=== PATIENT | male | born 1940 | race Caucasian/White ===

== ENCOUNTER 2018-08-30 09:05 | Inpatient (IN) ==
[2018-09-30 13:31] LABS: Appearance,Urine CLEAR; Bilirubin,Urine NEG (NEG); Color,Urine YELLOW; Glucose,Urine (UA) NEGATIVE (NEG); Leukocyte Esterase,Urine NEG /uL (NEG); Protein,Urine NEG (NEG); Specific Gravity,Urine 1.009 (1.000-1.035); Urine Blood NEG mg/dL (<0.03); Urobilinogen,Urine NEG (NEG)
[2018-09-30 13:52] LABS: Basophils # (Auto) 0 K/mcL (0.0-0.3); Basophils % (Auto) 0.5 % (0.0-2.0); Eosinophils # (Auto) 0.2 K/mcL (0.0-0.7); Eosinophils % (Auto) 3.6 % (0.0-7.0); Granulocytes % (Auto) 68.7 % (38.0-78.0); Lymphocytes # (Auto) 1.1 K/mcL (1.5-4.8); Lymphocytes % (Auto) 17.8 % (15.5-49.0); Mean Cell Volume 87.3 fL (80.0-100.0); Mean Corpuscular HGB Conc 33.2 g/dL (31.0-36.0); Monocytes # (Auto) 0.6 K/mcL (0.1-0.9); Monocytes % (Auto) 9.4 % (1.0-12.0); Platelet Count 290 K/mcL (140-440); RBC 5.34 M/mcL (4.50-5.90); Red Cell Distribution Width 14.9 % (11.5-14.5)
[2018-09-30 14:00] LABS: Blood Urea Nitrogen 16 mg/dl (8-23)
[2018-10-04] MEDS ORDERED: CELECOXIB 200 MG CAPSULE PO SCH (07:00)
[2018-10-04] MEDS ORDERED: ACETAMINOPHEN 500 MG TABLET PO SCH (07:00)
[2018-10-04] MEDS ORDERED: ceFAZolin 2 GM in DEXTROSE 5% IN WATER 50 ML IV SCH (07:00)
[2018-10-04] MEDS ORDERED: 0.9 % SODIUM CHLORIDE 9 ML, KETOROLAC 30 MG, ROPIVACAINE HCL/PF 49.5 ML, EPINEPHrine 0.... IJ SCH (07:00)
[2018-10-04] MEDS ORDERED: oxyCODONE 10 MG TAB.ER.12H PO SCH (07:00)
[2018-10-04] MEDS ORDERED: PREGABALIN 75 MG CAPSULE PO SCH (07:00)
[2018-10-04] MEDS ORDERED: KETAMINE 10 MG/ML ML ONE (12:04)
[2018-10-04] MEDS ORDERED: FAMOTIDINE/PF 20 MG/2 ML VIAL IV ONE (12:04)
[2018-10-04] MEDS ORDERED: GLYCOPYRROLATE 0.2 MG/ML VIAL IV ONE (12:04)
[2018-10-04] MEDS ORDERED: PHENYLEPHRINE 10 MG/ML VIAL ONE (12:04)
[2018-10-04] MEDS ORDERED: DEXAMETHASONE 10 MG/ML VIAL ONE (12:04)
[2018-10-04] MEDS ORDERED: PROPOFOL 200 MG/20 ML VIAL IV ONE (12:04)
[2018-10-04] MEDS ORDERED: LIDOCAINE HCL/PF 100 MG/5 ML SYRINGE IV ONE (12:04)
[2018-10-04] MEDS ORDERED: MIDAZOLAM 5 MG/5 ML VIAL ONE (12:04)
[2018-10-04] MEDS ORDERED: ONDANSETRON 4 MG/2 ML VIAL ONE (12:04)
[2018-10-04] MEDS ORDERED: GENTAMICIN SULFATE 800 MG/20 ML VIAL IR ONE (12:35)
[2018-10-04] MEDS ORDERED: fentaNYL 100 MCG/2 ML VIAL IV PRN (13:22)
[2018-10-04] MEDS ORDERED: METHOCARBAMOL 1,000 MG/10 ML VIAL IV PRN (13:22)
[2018-10-04] MEDS ORDERED: KETOROLAC 15 MG/ML VIAL IV PRN ×2 (13:22→13:43)
[2018-10-04] MEDS ORDERED: MEPERIDINE 25 MG/ML SYRINGE IV PRN (13:22)
[2018-10-04] MEDS ORDERED: NALOXONE HCL 0.4 MG/ML VIAL IV PRN (13:22)
[2018-10-04] MEDS ORDERED: ONDANSETRON 4 MG/2 ML VIAL IV PRN ×2 (13:22→13:43)
[2018-10-04] MEDS ORDERED: IPRATROPIUM/ALBUTEROL 3 ML AMPUL.NEB NEB PRN (13:22)
[2018-10-04] MEDS ORDERED: LACTATED RINGERS 250 ML IV PRN (13:22)
[2018-10-04] MEDS ORDERED: BENZOCAINE/MENTHOL 1 LOZENGE PO PRN ×2 (13:22→13:43)
[2018-10-04] MEDS ORDERED: FLUMAZENIL 0.1 MG/ML ML IV PRN (13:22)
[2018-10-04] MEDS ORDERED: ACETAMINOPHEN 1,000 MG/100 ML BOTTLE IV ONE (13:22)
[2018-10-04] MEDS ORDERED: LACTATED RINGERS 1,000 ML IV SCH (13:30)
--- NOTE | 2018-10-04 13:42 | Brief Operative Note ---
Date of procedure: 10/04/18 Pre-op diagnosis: left hip djd severe Post-op diagnosis: same Procedure: left tuan Grafts/Implants: Yes Anesthesia: ELIFA Surgeon: Tucker Sanchez Manager Recovery: Getachew Velasquez Estimated blood loss (cc): 50 Specimens Removed/Pathology: none sent Condition: stable Disposition: PACU
[2018-10-04] MEDS ORDERED: POLYETHYLENE GLYCOL 3350 17 GM PACKET PO PRN (13:43)
[2018-10-04] MEDS ORDERED: HYDROmorphone 2 MG/ML VIAL IV PRN (13:43)
[2018-10-04] MEDS ORDERED: BISACODYL 10 MG SUPP.RECT PR PRN (13:43)
[2018-10-04] MEDS ORDERED: TRANEXAMIC ACID 1,000 MG/10 ML VIAL IV SCH (13:43)
[2018-10-04] MEDS ORDERED: FLEETS ADULT ENEMA PR PRN (13:43)
[2018-10-04] MEDS ORDERED: oxyCODONE/APAP 5/325MG TABLET PO PRN (13:43)
[2018-10-04] MEDS ORDERED: MAGNESIUM HYDROXIDE 30 ML ORAL.SUSP PO PRN (13:43)
[2018-10-04] MEDS ORDERED: 0.45 % SODIUM CHLORIDE 1,000 ML IV SCH (13:45)
--- NOTE | 2018-10-04 14:20 | Operative Note ---
DATE OF OPERATION: 10/04/2018 PREOPERATIVE DIAGNOSIS: Left hip degenerative arthritis, severe. POSTOPERATIVE DIAGNOSIS: Left hip degenerative arthritis, severe. PROCEDURE: Left total hip arthroplasty with superior approach. SURGEON: Tucker Sanchez MD MAILING JOGGER: Getachew Velasquez PA-C ANESTHESIA: General LMA anesthesia. COMPLICATIONS: None. ESTIMATED BLOOD LOSS: About 20 mL DESCRIPTION OF PROCEDURE: The patient was brought to the operating room and placed supine on the operating table. Once asleep, the patient had the left hip sterilely prepped and draped in a right lateral position. Ioban was placed over the skin. We confirmed the operative site by a timeout. Once this was done, we then made a superior approach to the hip and dislocated the hip superiorly. We made our neck cut at 32 mm from the center of hip rotation. Once this was done, we then subluxed the hip anteriorly and reamed up to the size 56, implanted a 56 cup with a 20 mm screw. This fit very nicely. We trialed a 30 mm screw which was too long. We placed a standard poly and we trialled a hooded poly previously. We proceeded with broaching up to the size 4 stem and took an x-ray. This was slightly longer. We then broached and put the final implants and took a final x-ray which showed equal leg lengths very stable up to 90 degrees rotation. We placed a 36 mm head with a neutral neck length. There was no complication. The patient tolerated this well. We irrigated thoroughly and closed the capsule posteriorly with #1 Ethibond, closed the fascial layer with a Stratafix suture and closed the skin with 2-0 Vicryl and adhesive closure. The patient tolerated this well. Blood loss was about 20 mL. RBH:paulino Job ID: [id number] Doc ID: [id number] Tucker Sanchez MD
[2018-10-04] MEDS: 0.9 % SODIUM CHLORIDE 10 ML SYRINGE IV SCH ×2 (14:42→20:56)
--- NOTE | 2018-10-04 15:31 | XRay Report ---
CLINICAL INFORMATION: Post-Op Total Hip COMPARISON: None. FINDINGS: Left total hip prosthesis is in anatomic alignment. No osseous abnormalities. Right hip is normal in width and alignment without arthritic change. Soft tissue swelling operative site seen as expected. IMPRESSION: Normal postoperative appearance Interpreted and Authenticated by: Yousuf Fuentes 10/04/18
[2018-10-04] MEDS: IPRATROPIUM BROMIDE 1 PUFF INHALER INH PRN (17:23)
[2018-10-04] MEDS: ALBUTEROL SULFATE 1 PUFF INHALER INH PRN (17:23)
--- NOTE | 2018-10-04 17:23 | XRay Report ---
CLINICAL INFORMATION: LEFT TOTAL HIP COMPARISON: None. FINDINGS: Intraoperative films show prosthetic acetabulum to be anatomically aligned. There is a femoral stem template also near-anatomic alignment. No osseous abnormality. IMPRESSION: Intraoperative films Interpreted and Authenticated by: Yousuf Fuentes 10/04/18
[2018-10-04] MEDS: ceFAZolin 1 GM VIAL IV SCH (19:45)
[2018-10-04] MEDS: DOCUSATE SODIUM 100 MG CAPSULE PO SCH (20:56)
[2018-10-04] MEDS: HYDROCHLOROTHIAZIDE 12.5 MG CAPSULE PO SCH (20:56)
[2018-10-04] MEDS: ASPIRIN 325 MG ENTERIC COATED TABLET PO SCH (20:56)
[2018-10-04] MEDS ORDERED: SENNOSIDES 1 TABLET PO SCH (21:00)
[2018-10-04] MEDS ORDERED: TEMAZEPAM 15 MG CAPSULE PO PRN (21:00)
[2018-10-05] MEDS: ACETAMINOPHEN 325 MG TABLET PO PRN ×2 (02:17→12:18)
[2018-10-05] MEDS: ceFAZolin 1 GM VIAL IV SCH (04:02)
[2018-10-05] MEDS: IPRATROPIUM BROMIDE 1 PUFF INHALER INH PRN ×2 (04:04→10:11)
[2018-10-05] MEDS: ALBUTEROL SULFATE 1 PUFF INHALER INH PRN ×2 (04:04→10:11)
[2018-10-05] MEDS: 0.9 % SODIUM CHLORIDE 10 ML SYRINGE IV SCH (05:10)
--- NOTE | 2018-10-05 07:23 | Orthopedic Progress Note ---
Subjective Patient information: Note initiated : 10/05/18 at 7:20 am Service Date, if different from initiated Date: [] Patient: Yousuf Lewis 78 y/o M admitted on 10/04/18 for Left Total Hip Arthroplasty. Chief Complaint: [Pt is stable this morning on post operative day 1 without any significant concerns or complaints. Patients vital signs have remained stable. Patients dressing is dry and is grossly intact from a neurovascular and motor standpoint. Patients 10 point ROS is otherwise negative. ] Objective Vital signs: Vital Signs Temp Pulse Resp BP Pulse Ox 10/05/18 04:00 97.8 F 85 18 93 10/05/18 03:00 94 10/05/18 01:00 94 10/05/18 00:00 98.0 F 72 18 130/74 93 10/04/18 23:00 94 10/04/18 21:00 94 10/04/18 19:48 93 10/04/18 19:44 97.8 F 71 18 131/82 96 10/04/18 19:00 94 10/04/18 16:26 96 10/04/18 15:57 66 148/85 97 10/04/18 15:43 91 10/04/18 15:42 64 153/94 97 10/04/18 15:27 66 146/93 95 10/04/18 15:12 61 127/72 95 10/04/18 14:57 62 125/67 94 10/04/18 14:53 92 10/04/18 14:43 63 110/58 94 10/04/18 14:27 62 133/79 94 10/04/18 14:20 97.4 F 64 14 141/83 98 10/04/18 14:05 98.1 F 67 18 122/70 98 10/04/18 14:00 66 14 117/68 98 10/04/18 13:55 67 13 109/60 97 10/04/18 13:50 98.0 F 67 15 106/56 95 10/04/18 08:41 97.8 F 74 16 130/80 93 Intake and Output 10/04/18 10/05/18 10/05/18 21:59 05:59 13:59 Intake Total 1588 Output Total 250 1675 Balance 1338 -1675 Intake: IV 548 Sodium Chloride 0.45% 1,000 ml 548 @ 100 mls/hr IV .Q10H NOEMI Rx#: [id number] Oral 1040 Output: Void Amount 250 1675 Other: Meal Dinner Percent of Meal Consumed 100% Urine Appearance Clear Urine Color Light Elenita # Voids 1 Weight 220 lb 6.4 oz Intake & Output: Intake & Output 10/04/18 10/05/18 10/05/18 21:59 05:59 13:59 Intake Total 1588 Output Total 250 1675 Balance 1338 -1675 Weight 220 lb 6.4 oz Intake: IV 548 Sodium Chloride 0.45% 1,000 ml 548 @ 100 mls/hr IV .Q10H NOEMI Rx#: [id number] Oral 1040 Output: Void Amount 250 1675 Other: Meal Dinner Percent of Meal Consumed 100% Urine Appearance Clear Urine Color Light Elenita # Voids 1 Incision: Yes healing Incision clean and dry: Yes Dressing: Yes clean Weight bearing status: full Neurological exam IM: Yes motor sensory intact, Yes neurovascular intact Extremities exam IM: Yes Foot pink and warm, Yes neurovascular intact - Labs CBC & BMP: 10/05/18 04:03 09/30/18 11:38 Labs: 10/05/18 09/30/18 04:03 11:38 Hgb 15.5 Hct 42.1 46.6 Assessment and Plan (1) Hx of total hip arthroplasty The patient has been educated regarding dressing care, Physical Therapy recommendations, home exercises, restrictions, and follow up appointments. The patient has had all necessary DME prescribed. The patient has remained r elatively stable during their hospital course. Status: Acute
--- NOTE | 2018-10-05 07:27 | Discharge Summary ---
Ortho Discharge - [facility] - Patient Instructions Diet: Regular Diet Activity: activity as tolerated, weight bearing as tolerated Total Hip Protocol: Follow activity instructions as provided by Physical Therapy. Dressing Care: May shower in 2 days - Problem Maintenance (1) Hx of total hip arthroplasty Status: Acute - Follow Up Plan Follow Up Appointments: Getachew Velasquez PA-C [Physician Lead Clinical Research Coordinator] - 10/19/18 10:10 am Disposition: Home, Self-Care Prognosis: Good Rehab Potential: Good I certify that the patient requires SNF services: No Overall status at discharge: patient is progressing back to baseline - Orders For Discharge Prescriptions: Aspirin [Ecotrin] 325 mg PO BID #60 tab.ec Docusate Sodium [Colace] 100 mg PO BID #60 cap oxyCODONE/APAP [Percocet 5-325 mg] 1 - 2 tab PO Q4HP PRN #75 tab PRN Reason: Pain Level 3-6
[2018-10-05] MEDS ORDERED: POTASSIUM CHLORIDE 10 MEQ TABLET PO SCH (08:00)
[2018-10-05] MEDS: ASPIRIN 325 MG ENTERIC COATED TABLET PO SCH (08:54)
[2018-10-05] MEDS: DOCUSATE SODIUM 100 MG CAPSULE PO SCH (08:55)
[2018-10-05] MEDS: HYDROCHLOROTHIAZIDE 12.5 MG CAPSULE PO SCH (08:56)
[2018-10-05] MEDS ORDERED: Fluticasone/Vilanterol [Breo Ellipta 100-25 Mcg Inhaler] INH SCH (09:00)
[2018-10-05] MEDS ORDERED: LORATADINE 10 MG TABLET PO SCH (09:00)
[2018-10-05] MEDS ORDERED: MOMETASONE NAS SPRAY 1 SPRAY BOTTLE NAS SCH (09:00)
[2018-10-05] MEDS ORDERED: NON FORMULARY MEDICATION 1 DOSE MISCELL (Fluticasone/Vilanterol [Breo Ellipta 100-25 Mcg I IH SCH (09:00)
== END 2018-10-05 12:55 | disposition home or self-care (01) | DRG 470 ==
LOC: MEDSUR 10-04 08:15
PROVIDERS: ADMIT Orthopaedic Surgery; ATTEND Orthopaedic Surgery